=== PATIENT | male | born 2000 | race Caucasian/White ===

== ENCOUNTER 2021-06-26 16:11 | Emergency (ER) | payer BC, SELFPAY ==
--- NOTE | ~2021-06-26 | US_ITS ---
EXAMINATION: US scrotum doppler DATE: 06/26/2021 18:59 INDICATION: Left testicular pain and swelling TECHNIQUE: Testicular sonogram utilizing grayscale and Doppler COMPARISON: None. FINDINGS: The right testis measures 5.6 x 2.9 x 2.3 cm. The left testis measures 4.6 x 3.4 x 2.1 cm. Symmetric normal grayscale appearance to both testes. There is normal vascular flow to both testes. 4 mm anecho ic right epididymal cyst. The right epididymis is otherwise normal with normal vascular flow. The lef t epididymis is normal with normal vascular flow. There is no varicocele or hydrocele. IMPRESSION: 1. 4 mm right epididymal cyst. Otherwise unremarkable scrotal ultrasound. Reviewed, dictated and finalized at [facility]. TS PHYSIOLOGIST
[2021-06-26 16:22] VITALS: BP 130/90; PULSE 104; RESP 15; TEMP 36.3; O2SAT 100
[2021-06-26 18:05] LABS: Basophils Percent Auto 0.4 % (0.2-1.2); Eosinophils Absolute Auto 0.2 K/mm3 (0-0.3); Eosinophils Percent Auto 2.2 % (0-4.4); Hematocrit 44.9 % (42.0-52.0); Hemoglobin 15.1 g/dL (14.0-18.0); Immature Granulocyte Absolute 0.03 K/mm3 (0.00-0.031); Immature Granulocyte Percent A 0.4 % (0-0.5); Lymphocytes Absolute Auto 2.34 K/mm3 (0.9-3.2); Lymphocytes Percent Auto 33.7 % (18.3-44.2); Mean Corpuscular HGB Conc 33.6 g/dl (32-36); Mean Corpuscular Hemoglobin 29.3 pg (26-34); Mean Corpuscular Volume 87.2 fl (80-100); Mean Platelet Volume 9.8 fl (7.4-10.4); Monocytes Absolute Auto 0.4 K/mm3 (0.1-0.6); Monocytes Percent Auto 5.9 % (2.6-8.5); Neutrophils Percent Auto 57.4 % (45.5-73.1); Platelet Count Result 268 k/mm3 (150-375); Red Blood Count 5.15 M/mm3 (4.6-6.20); Red Cell Distribution Width 12.7 % (11.5-14.5)
[2021-06-26 18:18] LABS: Alanine Aminotransferase 18 U/L (4-50); Alkaline Phosphatase 93 U/L (58-237); Anion Gap 9 mmol/L (8-16); Aspartate Amino Transferase 30 U/L (17-59); Bilirubin,Total 0.8 mg/dL (0.2-1.3); Blood Urea Nitrogen 19 mg/dL (8-21); Calcium 9.6 mg/dL (8.9-10.7); Carbon Dioxide 26 mmol/L (22-30); Chloride 99 mmol/L (98-107); Estimated CRCL calculation 107 ml/min; Estimated Glomerular Filt Rate > 60; Glucose 102 mg/dL (65-110); Lipase 90 U/L (23-300); Potassium 4.5 mmol/L (3.4-5.0); Sodium 134 mmol/L (134-143)
[2021-06-26 18:23] LABS: Add Urine Microscopic? NO; Appearance Urine Clear (Clear); Bilirubin Urine Negative (Negative); Blood Urine Negative (Negative); Color Urine Yellow (Yellow); Glucose Urine UA Negative (Negative); Ketones Urine Negative (Negative); Leukocyte Esterase Ur Negative LEU/UL (Negative); Nitrate Urine Negative (Negative); Protein Urine Negative (Negative); Specific Grav Ur 1.023 (1.001-1.035); Urobilinogen Urine Negative mg/dL (<2.0)
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
[2021-06-26 20:12] VITALS: BP 115/78; PULSE 79; RESP 16; O2SAT 98
== END 2021-06-26 20:13 | disposition home or self-care (01) ==
PROVIDERS: Emergency Medicine; Emergency Provider Emergency Medicine
DX: S39.94XA Unspecified injury of external genitals, initial encounter (principal); N50.3 Cyst of epididymis; W51.XXXA Accidental striking against or bumped into by another person, initial encounter
CPT/HCPCS: 36415; 76870; 80053; 81003; 83690; 85025; 93976; 99284